=== PATIENT | female | born 1945 | race Caucasian/White ===

== ENCOUNTER 2022-08-30 03:21 | Inpatient (IN) | payer OTHER, MEDICARE ==
[~2022-08-30] VITALS: Ht 154.9 cm; Wt 34.8 kg
[2022-08-30] MEDS ORDERED: AMIT50 PO (06:49)
[2022-08-30] MEDS ORDERED: TRAZ100 PO (06:49)
[2022-08-30] MEDS ORDERED: Norco 5-325 Ta1 EACH PO (06:49)
[2022-08-30] MEDS ORDERED: DOCU100 (06:50)
[2022-08-30 08:32] LABS: BASOPHILS ABSOLUTE AUTO 0.02 K/mm3 (0.00-0.23); BASOPHILS PERCENT AUTO 0 % (0-2); EOSINOPHILS ABSOLUTE AUTO 0.05 K/mm3 (0.00-0.68); EOSINOPHILS PERCENT AUTO 1 % (0-6); Hematocrit 27.3 % (33.0-51.0); Hemoglobin 8.3 g/dL (11.5-16.0); IMMATURE GRAN ABSOLUTE AUTO 0.04 K/mm3 (0.00-0.10); IMMATURE GRAN PERCENT AUTO 1 % (0-1); LYMPHOCYTES ABSOLUTE AUTO 1.34 K/mm3 (0.84-5.20); LYMPHOCYTES PERCENT AUTO 16 % (21-46); MONOCYTES ABSOLUTE AUTO 0.78 K/mm3 (0.16-1.47); MONOCYTES PERCENT AUTO 9 % (4-13); Mean Corpuscular HGB 22.5 pg (26.0-34.0); Mean Corpuscular HGB Conc 30.4 g/dL (31.5-36.5); Mean Corpuscular Volume 74 fL (80-100); Mean Platelet Volume 7.6 fL (9.1-12.4); NEUTROPHILS ABSOLUTE AUTO 6.29 K/mm3 (1.96-9.15); NEUTROPHILS PERCENT AUTO 74 % (41-73); Platelet Count 323 K/mm3 (150-400); RDW Coefficient Variation 18.8 % (11.7-14.2); Red Blood Cell Count 3.69 M/mm3 (3.80-5.20); White Blood Cell Count 8.52 K/mm3 (4.00-11.30)
[2022-08-30 08:46] LABS: Prothrombin Time Results 10.5 Sec (9.7-11.5)
[2022-08-30 08:50] LABS: Albumin, Blood 2.6 g/dL (3.4-5.0); Albumin/Globulin Ratio 0.7 (0.8-1.8); Bilirubin, Total 0.1 mg/dL (0.1-1.0); Bun/Creatinine Ratio 25.2 (12.0-20.0); Calcium, Blood 8.4 mg/dL (8.5-10.1); Creatinine, Blood 0.44 mg/dL (0.40-1.00); Globulin, Blood 3.5 g/dL (2.2-4.0); Potassium, Blood 4.6 mmol/L (3.5-5.5); Total Protein, Blood 6.1 g/dL (6.4-8.2)
--- NOTE | 2022-08-30 10:20 | NUR ---
PT TO IMAGING
--- NOTE | 2022-08-30 11:12 | NUR ---
DR ROME IN TO SEE PT. PT RETURNED FROM IMAGING. OBTAINED ORDER FOR OT DOSE OF 25 MCG FENTANYL AND ADMINISTERED. PROVIDED WARM BLANKET FOR COMFORT. FAMILY BEDSIDE.
--- NOTE | 2022-08-30 12:48 | NUR ---
pt to surgery
--- NOTE | 2022-08-30 15:28 | NUR ---
PT ARRIVED TO ROOM FROM PACU A&OX4. VSS. DRESSINGS TO R HIP CDI. TOWNSEND DRAINING LIGHT YELLOW URINE. CALL LIGHT IN REACH. FAMILY AT BEDSIDE. PROVIDED WATER AND SNACK.
--- NOTE | 2022-08-30 17:11 | NUR ---
SUMMARY PT POD 0 FOR R HIP FX REPAIR. DRESSINGS TO R HIP CDI. VSS. PT TOLERATING PO. MEDICATED PER ORDERS FOR PAIN. ICE PACK TO R HIP FOR COMFORT. TXA COMPLETED PER ORDERS. CALL LIGHT IN REACH.
[2022-08-31 04:39] LABS: BASOPHILS ABSOLUTE AUTO 0.02 K/mm3 (0.00-0.23); BASOPHILS PERCENT AUTO 0 % (0-2); EOSINOPHILS ABSOLUTE AUTO 0.01 K/mm3 (0.00-0.68); EOSINOPHILS PERCENT AUTO 0 % (0-6); Hematocrit 23.3 % (33.0-51.0); Hemoglobin 7.1 g/dL (11.5-16.0); IMMATURE GRAN ABSOLUTE AUTO 0.05 K/mm3 (0.00-0.10); IMMATURE GRAN PERCENT AUTO 1 % (0-1); LYMPHOCYTES PERCENT AUTO 17 % (21-46); MONOCYTES ABSOLUTE AUTO 0.92 K/mm3 (0.16-1.47); MONOCYTES PERCENT AUTO 13 % (4-13); Mean Corpuscular HGB 22.3 pg (26.0-34.0); Mean Corpuscular HGB Conc 30.5 g/dL (31.5-36.5); Mean Corpuscular Volume 73 fL (80-100); Mean Platelet Volume 8.4 fL (9.1-12.4); NEUTROPHILS ABSOLUTE AUTO 4.86 K/mm3 (1.96-9.15); NEUTROPHILS PERCENT AUTO 69 % (41-73); Platelet Count 328 K/mm3 (150-400); RDW Coefficient Variation 18.6 % (11.7-14.2); RDW Standard Deviation 49.2 fL (35.1-46.3); Red Blood Cell Count 3.19 M/mm3 (3.80-5.20); White Blood Cell Count 7.06 K/mm3 (4.00-11.30)
[2022-08-31 04:57] LABS: Bun/Creatinine Ratio 22.9 (12.0-20.0); Calcium, Blood 8.4 mg/dL (8.5-10.1); Creatinine, Blood 0.52 mg/dL (0.40-1.00); Magnesium, Blood 2.2 mg/dL (1.6-2.4); Potassium, Blood 4.3 mmol/L (3.5-5.5)
--- NOTE | 2022-08-31 06:20 | NUR ---
SHIFT SUMMARY PT A&OX4, AND COOPERATIVE WITH CARE. MEDICATING FOR PAIN PER EMAR. TOLERATING PO INTAKE. TOWNSEND DRAINING TO GRAVITY. DRESSING TO R HIP X2 C/D/I. CALLS APPROPRIATELY, CALL LIGHT WITHIN REACH.
--- NOTE | 2022-08-31 19:14 | NUR ---
SHIFT SUMMARY POD1 R HIP PINNING, A/OX4, VSS, TOLERATING PO, PAIN WELL MANAGED WITH PO PAIN MEDICATIONS, WORKED WITH THERAPY TODAY AND WAS UP TO CHAIR TWICE, TOWNSEND OUT BY RN STUDENT. NO ACUTE EVENTS TODAY, CALL LIGHT IN REACH, REPORT GIVEN TO NOC RN.
--- NOTE | 2022-09-01 05:16 | NUR ---
SHIFT SUMMARY: PODx2 R HIP PINNING. X2 AQUACELS REMAIN ON RIGHT HIP. C/D/I AT THIS TIME. PT USING FWW AND GAIT BELT, REMAINS TTWB ON RIGHT LEG. TOLERATING PO FLUIDS AND FOOD. PAIN WELL MANAGED T/O THE NIGHT PER EMAR ORDERS. PT EATING, DRINKING, AND VOIDING. VERY PLEASANT. HR REMAINED SLIGHTLY ELEVATED T/O THE SHIFT. PT DENIED CHEST PAIN OR SOB. REMAINS ON CONTINUOUS BIOX. PT RESTING WITH CALL LIGHT IN REACH. WILL GIVE REPORT TO DAY TIME RN.
--- NOTE | 2022-09-01 19:48 | NUR ---
SHIFT SUMMARY POD2 R HIP PINNING, A/OX4, VSS, TOLERATING PO, PAIN WELL MANAGED, ABLE TO STAND PIVOT TO CHAIR AND BSC, WORKIGN [facility] PT/OT FOR THERAPY. NO ACUTE EVENTS THIS SHIFT, CALL LIGHT IN REACH, REPORT GIVEN TO JEREMI HOYT.
--- NOTE | 2022-09-02 03:59 | NUR ---
POD3 FOR RIGHT HIP NAILING. CIRCULATION AND SENSATION REMAINS INTACT. AQUACEL DRESSINGS REMAIN INTACT. VSS. MEDICATED FOR PAIN WITH NORCO. PT AMBULATED TO BSC MULTIPLE TIMES T/O THE NIGHT. VOIDING AND PASSING GAS W/O DIFFICULTY. TOLLERATING PO INTAKE. PT SLEPT WELL T/O THE NIGHT. PLAN FOR PT TO WORK WITH PT/OT AND D/C TO SNF. THE PATIENT IS RESTING IN BED, IN NO DISTRESS, CALL LIGHT IN REACH.
--- NOTE | 2022-09-02 18:02 | NUR ---
SUMMARY: PT IS POD3 R HIP PINNING. A/O, VSS. SURGICAL SITE WNL. PT DOING WELL, PAIN APPEARS TO BE MANAGED WITH NARCO Q4. PT TOLERATING REG DIET, VOIDING. SBA WITH FWW TO COMMODE. PT PLEASENT AND COOPERATIVE.USES CALL LIGHT, NO SAFETY CONCERNS.
[2022-09-03 04:17] LABS: Hematocrit 20.4 % (33.0-51.0); Hemoglobin 6.1 g/dL (11.5-16.0); Mean Corpuscular HGB 22.5 pg (26.0-34.0); Mean Corpuscular HGB Conc 29.9 g/dL (31.5-36.5); Mean Corpuscular Volume 75 fL (80-100); Platelet Count 355 K/mm3 (150-400); RDW Coefficient Variation 19.2 % (11.7-14.2); RDW Standard Deviation 52.1 fL (35.1-46.3); Red Blood Cell Count 2.71 M/mm3 (3.80-5.20); White Blood Cell Count 4.57 K/mm3 (4.00-11.30)
[2022-09-03 05:01] LABS: Anion Gap 4 mmol/L (6-16); Blood Urea Nitrogen 18 mg/dL (8-24); Bun/Creatinine Ratio 27.2 (12.0-20.0); CO2, Blood 28 mmol/L (21-32); Calcium, Blood 8.3 mg/dL (8.5-10.1); Chloride, Blood 104 mmol/L (98-108); Creatinine, Blood 0.66 mg/dL (0.40-1.00); Ferritin, Serum 9 ng/mL (8-252); Glomerular Filtration Rate 91 (60-); Glucose, Blood 91 mg/dL (70-99); Iron Serum 15 ug/dL (50-170); Percent Saturation 4.9 % (15.0-50.0); Phosphorus, Blood 3.7 mg/dL (2.5-4.9); Potassium, Blood 4.6 mmol/L (3.5-5.5); Sodium, Blood 136 mmol/L (136-145); Total Iron Binding Capacity 306 ug/dL (250-450)
--- NOTE | 2022-09-03 06:04 | NUR ---
POD4 FOR RIGHT HIP PINNING, DRESSING REMAIN C/D/I. SENSATION AND CIRCULATION REMAIN INTACT IN RLE. PT SLEPT ON AND OFF T/O THE NIGHT. AMBULATED TO BSC TO VOID MULTIPLE TIMES. PT C/O PAIN T/O THE NIGHT, MEDICATED WITH PRN'S. DR BARFIELD CALLED ABOUT PT'S LOW H&H THIS AM, ORDERED TO GIVE 1U PRBC. AWAITING IRON LAB RESULTS. PLAN FOR PT TO D/C TO SNF ON THE [facility]. THE PATIENT IS CURRENTLY RESTING IN BED, IN NO DISTRESS, CALL LIGHT IN REACH
[2022-09-03 12:39] LABS: Hematocrit 27.7 % (33.0-51.0); Hemoglobin 8.8 g/dL (11.5-16.0)
--- NOTE | 2022-09-03 16:56 | NUR ---
DISCHARGE SUMMARY PATIENT ALERT AND ORIENTED THROUGHOUT SHIFT. TOLERATING REGULAR DIET AND LIQUIDS. VOIDING WELL. SBA WITH FWW AND GAIT BELT TO AMBULATE IN ROOM MAINTAINING TTWB TO RIGHT LEG. AQUACELS TO RIGHT HIP C/D/I. PAIN CONTROLLED WITH PO PAIN MEDS. H&H LOW ON AM LABS. ORDER FOR TRANSFUSION OF 1 UNIT PRBC. TRANSFUSION COMPLETED WITHOUT EVENT, PATIENT TOLERATED WELL. POST TRANSFUSION H&H INCREASED TO TOLERABLE LEVEL FOR DISCHARGE. FACILITY DISCHARGE ORDERS OBTAINED. TRANSPORT ARRANGE WITH PATIENT'S GRANDDAUGHTER. PATIENT LEFT UNIT AT 1605 VIA WHEELCHAIR WITH FAMILY MEMBER FOR SNF ON THE [facility]. REPORT CALLED TO SNF RN AT 1645.
== END 2022-09-03 15:57 | DRG 480 ==
LOC: SURS 03:21
PROVIDERS: Internal Medicine; Orthopaedic Surgery; Student in an Organized Health Care Education/Training Program; ADMIT Internal Medicine
PROC: 0QS636Z Reposition Right Upper Femur with Intramedullary Internal Fixation Device, Percutaneous Approach (ICD-10-PCS; principal; 2022-08-30 16:00)
PROC: 30233N1 Transfusion of Nonautologous Red Blood Cells into Peripheral Vein, Percutaneous Approach (ICD-10-PCS; 2022-08-31)
DX: S72.141A Displaced intertrochanteric fracture of right femur, initial encounter for closed fracture (principal); E43 Unspecified severe protein-calorie malnutrition; E87.1 Hypo-osmolality and hyponatremia; Z68.1 Body mass index [BMI] 19.9 or less, adult; Z66 Do not resuscitate; Z28.21 Immunization not carried out because of patient refusal; G47.00 Insomnia, unspecified; F17.210 Nicotine dependence, cigarettes, uncomplicated; R00.0 Tachycardia, unspecified; D50.9 Iron deficiency anemia, unspecified; E53.8 Deficiency of other specified B group vitamins; Z79.899 Other long term (current) drug therapy; W01.0XXA Fall on same level from slipping, tripping and stumbling without subsequent striking against object, initial encounter; Y93.01 Activity, walking, marching and hiking; Y92.019 Unspecified place in single-family (private) house as the place of occurrence of the external cause
CPT/HCPCS: 36415; 36430; 73502; 80048; 80053; 80069; 82607; 82728; 82746; 82947; 83540; 83550; 83735; 84443; 85014; 85018; 85025; 85027; 85610; 86850; 86900; 86901; 86923; 93005; 93010; 94762; 97110; 97116; 97162; 97166; 97530; 97535; A9270; C1713; C1769; J0690; J1100; J1170; J1650; J1885; J2250; J2405; J2704; J2710; J2795; J3010; J7050; J7120; P9016

== ENCOUNTER 2022-11-10 21:45 | Emergency (ER) | payer MEDICARE, OTHER ==
[~2022-11-10] VITALS: Ht 154.9 cm; Wt 36.3 kg
[~2022-11-10 21:45] MED LIST: AMIT50 PO; DOCU100; Norco 5-325 Ta1 EACH PO; TRAZ100 PO
[2022-11-10] MEDS ORDERED: CEPH500 PO (23:30)
== END 2022-11-11 00:04 | disposition home or self-care (01) ==
LOC: ER 21:45
DX: L03.116 Cellulitis of left lower limb (principal)
CPT/HCPCS: 93971; 99283-25; A9270